=== PATIENT | male | born 1955 | race Native Hawaiian/Other Pacific Islander ===

== ENCOUNTER 2017-12-08 14:09 | Emergency (ER) | payer SELFPAY ==
[~2017-12-08] VITALS: Wt 113.4 kg
[~2017-12-08 14:09] MED LIST: ANAPROX DS550 MG PO; FLEXERIL10 MG PO; MEDROL DOSEPAK4 MG PO
[2017-12-08] MEDS ORDERED: MEDROL DOSEPAK4 MG PO (15:37)
== END 2017-12-08 15:37 | disposition home or self-care (01) ==
LOC: ED 14:09
DX: M54.16 Radiculopathy, lumbar region (principal); M47.896 Other spondylosis, lumbar region; F17.200 Nicotine dependence, unspecified, uncomplicated; F10.10 Alcohol abuse, uncomplicated